=== PATIENT | female | born 1940 | race Caucasian/White ===

== ENCOUNTER 2017-07-19 10:52 | Day surgery (SDC) | payer MEDICARE ==
[2017-07-12 10:26] LABS: APPEARANCE,URINE SLIGHTLY-CLOUDY; BILIRUBIN,URINE NEGATIVE (NEGATIVE); GLUCOSE, URINE NEGATIVE (NEGATIVE); KETONES,URINE NEGATIVE (NEGATIVE); LEUKOCYTE ESTERASE,URINE NEGATIVE (NEGATIVE); NITRITE,URINE NEGATIVE (NEGATIVE); PROTEIN,URINE NEGATIVE (NEGATIVE); URINE SPECIFIC GRAVITY 1.013; UROBILINOGEN,URINE NEGATIVE mg/dL (<2.0)
--- NOTE | 2017-07-12 10:28 | RADIOLOGY REPORT (SQ) ---
EXAM DESCRIPTION: CHEST PA/LATERAL COMPLETED DATE/TIME: 07/12/2017 10:09 am REASON FOR STUDY: PRE-OP COMPARISON: 10/15/2013 EXAM PARAMETERS: NUMBER OF VIEWS: two views TECHNIQUE: Digital Frontal and Lateral radiographic views of the chest acquired. RADIATION DOSE: NA LIMITATIONS: none FINDINGS: LUNGS AND PLEURA: The lungs are hyperexpanded. There is some flattening the diaphragms. There is no pulmonary infiltrate or pleural effusion there is no mass MEDIASTINUM AND HILAR STRUCTURES: No masses or contour abnormalities. HEART AND VASCULAR STRUCTURES: Heart normal size. No evidence for failure. BONES: No acute findings. HARDWARE: None in the chest. OTHER: No other significant finding. IMPRESSION: Chronic lung changes with no acute cardiopulmonary disease. TECHNICAL DOCUMENTATION: JOB ID: [id number] [employer]- All Rights Reserved
[2017-07-12 10:29] LABS: ABSOLUTE BASOPHILS # (AUTO) 0.1 10^3/uL (0.0-0.2); ABSOLUTE EOSINOPHILS # (AUTO) 0.3 10^3/uL (0.0-0.6); ABSOLUTE MONOCYTES (AUTO) 0.6 10^3/uL (0.1-1.4); ABSOLUTE NEUT (AUTO) 4.1 10^3/uL (1.7-8.2); BASOPHILS % (AUTO) 1.3 % (0-2); EOSINOPHILS % (AUTO) 4.9 % (0-6); HEMATOCRIT 43.9 % (36.0-47.0); HEMOGLOBIN 15.1 g/dL (12.0-15.5); HGB HCT DIFFERENCE 1.4; LYMPHOCYTES % (AUTO) 27.7 % (13-45); MEAN CORPUSCULAR HEMOGLOBIN 30.3 pg (27.0-33.4); MEAN CORPUSCULAR HGB CONC 34.4 g/dL (32.0-36.0); MEAN CORPUSCULAR VOLUME 88 fl (80-97); MONOCYTES % (AUTO) 7.8 % (3-13); RED BLOOD COUNT 4.99 10^6/uL (3.72-5.28); RED CELL DISTRIBUTION WIDTH 14.1 % (11.5-14.0); SEGMENTED NEUTROPHILS % (AUTO) 58.3 % (42-78); WHITE BLOOD COUNT 7.1 10^3/uL (4.0-10.5)
--- NOTE | 2017-07-12 17:21 | EKG REPORT ---
SEVERITY:- ABNORMAL ECG - SINUS RHYTHM LAD, CONSIDER LEFT ANTERIOR FASCICULAR BLOCK PROBABLE ANTEROSEPTAL INFARCT, OLD : Confirmed by: Mumtaz Ramos 12-Jul-2017 17:21:13
[~2017-07-19 10:52] MED LIST: CEFAZOLIN 2 GM/D5W RTU 2 GM/50 ML RTUPB IV PRN; DEXAMETHASONE SOD PHOSPHATE INJ 4 MG/1 ML VIAL ONE; GLYCOPYRROLATE INJ 0.4 MG/2 ML VIAL ONE; LACTATED RINGERS 1000 ML IV PRN; LIDOCAINE 0.5% INJ-PF (5 MG/ML) 50 ML SDV SUBCUT PRN; LIDOCAINE 2% INJ-PF (20 MG/ML) 10 ML AMPUL ONE; NEOSTIGMINE METHYLSULFATE 10 MG/10 ML VIAL ONE; ONDANSETRON HCL INJ/PF 4 MG/2 ML SDV ONE; PHENYLEPHRINE HCL INJ/PF 10 MG/1 ML SDV ONE; SCOPOLAMINE HYDROBROMIDE 1.5 MG PATCH.TD72 TD PRN; SUCCINYLCHOLINE CHLORIDE INJ 200 MG/10 ML VIAL ONE
[2017-07-19] MEDS ORDERED: EPINEPHRINE INJ/PF 1 MG/1 ML AMPULE ONE (11:26)
[2017-07-19] MEDS ORDERED: BUPIVACAINE HCL 0.5 % INJ/PF 30 ML SDV ONE (11:26)
[2017-07-19] MEDS ORDERED: FENTANYL CITRATE INJ/PF 250 MCG/5 ML AMPULE ONE (12:48)
[2017-07-19] MEDS ORDERED: MIDAZOLAM 2 MG/2 ML INJ ONE (12:49)
[2017-07-19] MEDS ORDERED: PROPOFOL INJ 200 MG/20 ML VIAL IV ONE (12:49)
[2017-07-19] MEDS ORDERED: MORPHINE SULFATE 10 MG/ML INJ ONE (12:49)
[2017-07-19] MEDS ORDERED: MORPHINE SULFATE 10 MG/ML INJ IV PRN (14:15)
[2017-07-19] MEDS ORDERED: FENTANYL CITRATE INJ/PF 100 MCG/2 ML AMPUL IV PRN (14:15)
[2017-07-19] MEDS ORDERED: MEPERIDINE HCL/PF INJ 25 MG/1 ML DISP.SYRIN IV PRN (14:15)
[2017-07-19] MEDS ORDERED: DIPHENHYDRAMINE HCL 50 MG/ML VIAL IV PRN (14:15)
[2017-07-19] MEDS ORDERED: PROMETHAZINE HCL INJ 25 MG/1 ML VIAL IV PRN (14:15)
--- NOTE | 2017-07-19 15:47 | Operative Report ---
Operative Report DATE OF SURGERY: 07/19/17 PREOPERATIVE DIAGNOSIS: Right shoulder rotator cuff tear and degenerative biceps tendon tear POSTOPERATIVE DIAGNOSIS: Same OPERATION: Right shoulder arthroscopic rotator cuff repair and biceps tenodesis SURGEON: MARIA ESTHER CHAIREZ ANESTHESIA: GA TISSUE REMOVED OR ALTERED: None COMPLICATIONS: None ESTIMATED BLOOD LOSS: 20mL INTRAOPERATIVE FINDINGS: As above PROCEDURE: IMPLANTS: Arthrex 5.5 mm bio composite corkscrew 2, 4.75mm bio composite swivel locks 2 DESCRIPTION OF PROCEDURE: Patient was brought to the operating room placed in supine position. After successfully induced and intubated the patient patient was placed in the beachchair position the head and endotracheal tube was secured appropriately. The right shoulder was prepped and draped in a normal surgical fashion. A timeout was done identifying the right shoulder as the correct site. After inflating the glenohumeral joint with sterile saline solution an 11 blade was used to establish the posterior portal. The arthroscope was introduced and return of fluid was seen showing that we successfully penetrated the glenohumeral joint. With the use of spinal needle we're able to remy the anterior portal and using an 11 blade able to establish anterior portal. A cannula was introduced through the anterior portal. At this point diagnostic scope was done. Patient had degenerative tearing of the labrum and partial tearing of the long head of the biceps tendon. She had a full-thickness tear of the supra and infraspinatus tendon with mild retraction. Through the anterior portal was able to debride the tissue with a shaver and radiofrequency ablator. I used a arthroscopic scissors to tenotomized the long head of the biceps. Patient did have about a focal 5 x 5 mm grade 3 versus 4 chondromalacia. A lateral portal was established 11 blade. 4.0mm shaver was introduced and was used to prepare the tear and the frontal bone for preparation of anchor placement. Once I was satisfied with the preparation I then redirected my scope into the subacromial space. Patient had degenerative tissue and bursal tissue that was resected and the combination of a 4.0 mm shaver and radiofrequency ablator. I was able to use a rotator cuff grasper and make sure that the tendon was pliable and axilla enough to return back to the greater tuberosity. The infraspinatus came fully while the supraspinatus came two [address] along for a repair. Turned my attention then to try to do a rotator cuff repair. A percutaneous incision was then just adjacent to the acromion on the lateral aspect. Through this percutaneous hole the awl was used to prepare the hole for an anchor. Herrick was percutaneously sent flushed with the bone just adjacent to the articular margin.Same steps were taken for placement of our second anchor more posteriorly. Sutures were passed through the anterior portal for proper suture management. With the use of the scorpion and I proceeded to pass the sutures through the rotator cuff tendon with proper suture management was able to pass the strands either through percutaneous hole or the anterior portal. Once I was satisfied with placement of all my sutures I then proceeded to do my arthroscopic knots. At this point the strands were used to do our lateral row. Bicomposite show out was used and the lateral aspect of the humerus was then cleaned off with a shaver and electrocautery. Once identified once I was replacement I proceeded to use my awl to do my hole. This this point the sutures were adequately tensioned and subluxed for inserted and secured securing and increasing the footprint of the rotator cuff repair. Remaining strands were cut with the arthroscopic cutter. Also satisfied with the repair I used a FiberWire to catch in the tenotomized long head of biceps using the scorpion needle. At this point the 2 strands were passed of the anterior portion of the repaired cuff. Arthroscopic knot ties were done to secure the biceps to anterior rotator cuff tear. Arthroscopic cutter was used to cut the remaining wounds after securing the biceps. Final pictures were taking showing my repair and arthroscopic biceps tenodesis. At this point fluid from the shoulder was removed camera and instruments were all removed. I proceeded to close my portal sites with 3-0 nylon. Xeroform 4 x 4 dressing followed by ABDs pads and Medipore tape was applied. Patient was placed in a sling and returned to supine position where he was successfully extubated and taken to PACU in stable condition.
--- NOTE | 2017-07-19 15:51 | PDOC DISCHARGE SUMMARY ---
Discharge Summary (SDC) - Discharge Final Diagnosis: Right shoulder arthroscopic rotator cuff repair and biceps tenodesis Date of Surgery: 07/19/17 Discharge Date: 07/19/17 Condition: Good Treatment or Instructions: Patient is instructed to follow up in 10-14 days. Patient instructed to remove dressing in 4 days then can shower and apply Band- Aids as needed. Patient to wear sling for comfort but okay to remove for shower and pendulum exercises. Pendulum exercises are instructed to be done 3 times a day ideally with breakfast, lunch, dinners and showers. Patient instructed to call if there is any signs of redness or drainage fevers or chills. Prescriptions: Oxycodone HCl/Acetaminophen [Percocet 5-325 mg Tablet] 1 - 2 tab PO ASDIR PRN # 60 tablet PRN Reason: Referrals: BEATRICE TAPIA MD [Primary Care Provider] - Discharge Diet: As Tolerated Discharge Activity: Activity As Tolerated, No Driving, No Lifting/Push/Pulling Home Care Assistance: None Needed Report the Following to Your Physician Immediately: Shortness of Breath, Increase in Pain, Fever over 101 Degrees, Unusual Bleeding, Redness, Swelling, Warmth, Drainage-Yellow, Drainage-Morin, Drainage-Green, Drainage-Foul Smelling
[2017-07-19] MEDS ORDERED: OXYCODONE-ACETAMINOPHEN 5-325 MG TABLET PO PRN ×2 (15:58)
[2017-07-19] MEDS ORDERED: FENTANYL CITRATE INJ/PF 100 MCG/2 ML AMPUL ONE (16:18)
[2017-07-19 19:12] VITALS: BP 140/80
== END 2017-07-19 19:07 | disposition home or self-care (01) ==
LOC: OROUT 10:52
PROVIDERS: ATTEND Orthopaedic Surgery
PROC: 0LS14ZZ Reposition Right Shoulder Tendon, Percutaneous Endoscopic Approach (ICD-10-PCS; 2017-07-19)
PROC: 0LM14ZZ Reattachment of Right Shoulder Tendon, Percutaneous Endoscopic Approach (ICD-10-PCS; principal; 2017-07-19 13:00)
DX: M75.121 Complete rotator cuff tear or rupture of right shoulder, not specified as traumatic (principal); S43.431A Superior glenoid labrum lesion of right shoulder, initial encounter; X58.XXXA Exposure to other specified factors, initial encounter; J45.909 Unspecified asthma, uncomplicated; I10 Essential (primary) hypertension; Z88.2 Allergy status to sulfonamides; Z79.899 Other long term (current) drug therapy; Z79.51 Long term (current) use of inhaled steroids; Z87.891 Personal history of nicotine dependence
CPT/HCPCS: 93005; 36415 ×2; 84132; 85025; 81001; 71020; 93010; 29827; 29828; C1713; J2250; J1100; J0171; J3010 ×2; A9270; J2370; J0330; J2405; J2704; J3490; J0690; 1630; J2270

== ENCOUNTER 2018-07-05 16:15 | Emergency (ER) | payer MEDICARE ==
--- NOTE | 2018-07-05 17:09 | RADIOLOGY REPORT (SQ) ---
EXAM DESCRIPTION: CT HEAD WITHOUT COMPLETED DATE/TIME: 07/05/2018 4:57 pm REASON FOR STUDY: fall COMPARISON: None. TECHNIQUE: Axial images acquired through the brain without intravenous contrast. Images reviewed wi th bone, brain and subdural windows. Additional sagittal and coronal reconstructions were generated. Images stored on PACS. All CT scanners at this facility use dose modulation, iterative reconstruction, and/or weight based d osing when appropriate to reduce radiation dose to as low as reasonably achievable (ALARA). [facility]: Dose Right [facility]: CareDose [facility]: Dose Right [facility]: Teradose 4D [facility]: Ellevation RADIATION DOSE: CT Rad equipment meets quality standard of care and radiation dose reduction techniq ues were employed. CTDIvol: 53.2 mGy. DLP: 1070 mGy-cm. mGy. LIMITATIONS: None. FINDINGS: VENTRICLES: Prominent. CEREBRUM: No masses. No hemorrhage. No midline shift. Areas of low density in the white matter mos t likely due to chronic micro-vascular ischemic change. No evidence for acute infarction. CEREBELLUM: No masses. No hemorrhage. No alteration of density. No evidence for acute infarction. EXTRAAXIAL SPACES: Mild age-related involutional change. No fluid collections. No masses. ORBITS AND GLOBE: No intra- or extraconal masses. Normal contour of globe without masses. CALVARIUM: No fracture. PARANASAL SINUSES: No fluid or mucosal thickening. SOFT TISSUES: Right frontal scalp hematoma. OTHER: No other significant finding. IMPRESSION: MILD CHRONIC CHANGES OF ATROPHY AND MICROVASCULAR ISCHEMIA. NO ACUTE PROCESS. EVIDENCE OF ACUTE STROKE: NO. TECHNICAL DOCUMENTATION: JOB ID: [id number] Quality ID # [id number]: Final reports with documentation of one or more dose reduction techniques (e.g., Au tomated exposure control, adjustment of the mA and/or kV according to patient size, use of iterative reconstruction technique) 2010 [employer]- All Rights Reserved Reading location - IP/workstation name: [email or web address]
[2018-07-05] MEDS ORDERED: LIDOCAINE 4%/TETRACAINE 0.5%/EPI 0.18% 5 ML TOPICAL SOLN TOP ONE (17:21)
[2018-07-05] MEDS ORDERED: LIDOCAINE 1%/EPINEPHRINE INJ 20 ML VIAL INJ ONE (17:21)
--- NOTE | 2018-07-05 18:54 | ER Document Report ---
ED General - General Chief Complaint: Laceration Stated Complaint: FALL/HEAD INJURY Time Seen by Provider: 07/05/18 16:50 Mode of Arrival: Ambulatory Information source: Patient Notes: This is a 77-year-old female with a history of COPD, hypertension, hypothyroidism. Patient presents after a fall and hitting her head. She was coming out of the house, and lost her footing and fell onto the concrete of the driveway. The patient was with her daughter at the time who witnessed the event. There was no loss of consciousness and she was able to ambulate after. The patient presents with swelling to the right forehead with a laceration over the right eyebrow and an abrasion to the left knee TRAVEL OUTSIDE OF THE [place] IN LAST 30 DAYS: No - HPI Onset/Duration: Sudden Quality of pain: Dull Severity: Mild Pain Level: 1 Associated symptoms: denies: Chest pain, Headache, Shortness of breath Exacerbated by: Denies Relieved by: Denies Similar symptoms previously: No Recently seen / treated by doctor: No - Related Data Allergies/Adverse Reactions: Sulfa (Sulfonamide Antibiotics) Allergy (Verified 07/05/18 16:20) UNKNOWN Past Medical History - General Information source: Patient - Social History Smoking Status: Never Smoker Cigarette use (# per day): No Chew tobacco use (# tins/day): No Frequency of alcohol use: None Drug Abuse: None Lives with: Family Family History: None Patient has suicidal ideation: No Patient has homicidal ideation: No - Past Medical History Cardiac Medical History: Reports: Hx Hypertension - AMLODIPINE, ATENOLOL Denies: Hx Coronary Artery Disease, Hx Heart Attack Pulmonary Medical History: Reports: Hx COPD Denies: Hx Asthma, Hx Bronchitis, Hx Pneumonia Neurological Medical History: Denies: Hx Cerebrovascular Accident, Hx Seizures Renal/ Medical History: Denies: Hx Peritoneal Dialysis GI Medical History: Denies: Hx Hepatitis, Hx Hiatal Hernia, Hx Ulcer Musculoskeletal Medical History: Reports Hx Arthritis Infectious Medical History: Denies: Hx Hepatitis Past Surgical History: Reports: Hx Appendectomy, Hx Cholecystectomy, Hx Hysterectomy, Hx Orthopedic Surgery - rotator cuff R. Denies: Hx Mastectomy, Hx Open Heart Surgery, Hx Pacemaker - Immunizations Hx Diphtheria, Pertussis, Tetanus Vaccination: Yes Hx Pneumococcal Vaccination: 10/28/16 Review of Systems - Review of Systems Constitutional: denies: Chills, Fever EENT: No symptoms reported Cardiovascular: No symptoms reported Respiratory: No symptoms reported Gastrointestinal: No symptoms reported Genitourinary: No symptoms reported Female Genitourinary: No symptoms reported Musculoskeletal: See HPI Skin: See HPI Hematologic/Lymphatic: No symptoms reported Neurological/Psychological: See HPI Physical Exam - Vital signs Vitals: Temp Pulse Resp BP Pulse Ox 98.1 F 65 16 134/68 H 94 07/05/18 16:35 07/05/18 16:35 07/05/18 16:35 07/05/18 16:35 07/05/18 16:35 Notes: Physical exam: GENERAL: 77-year-old female, alert and oriented 3, no acute distress. HEAD: She does have a large hematoma to the right forehead. She does have 5 cm laceration over the right eyebrow. EYES: Pupils equal round and reactive to light, extraocular movements intact, sclera anicteric, conjunctiva are normal. ENT: Oropharynx clear without exudates. Moist mucous membranes. NECK: Normal range of motion, supple without obvious mass. LUNGS: Breath sounds clear to auscultation bilaterally and equal. No wheezes rales or rhonchi. HEART: Regular rate and rhythm without murmurs, rubs or gallops. ABDOMEN: Soft, normoactive bowel sounds. No tenderness to palpation. No guarding, no rebound. No masses appreciated. EXTREMITIES: Normal range of motion, no pitting or edema. Patient does have a superficial abrasion over the left knee. She has full range of motion of the left knee. NEUROLOGICAL: Cranial nerves II through XII grossly intact. Normal speech, moving all extremities, motor is 5/5, sensory is grossly intact, cerebellar ( finger to nose) is excellent. Patient's visual bashir is very good. He is mentating appropriately. Her GCS is 15. PSYCH: Normal mood, normal affect. SKIN: Warm, Dry, normal turgor, no rashes or lesions noted. Course - Vital Signs Vital signs: Temp Pulse Resp BP Pulse Ox 97.3 F 61 16 134/69 H 94 07/05/18 18:59 07/05/18 18:59 07/05/18 18:59 07/05/18 18:59 07/05/18 18:59 - Diagnostic Test Radiology reviewed: Image reviewed, Reports reviewed - CT of the head shows no acute bleed Procedures - Laceration/Wound Repair Face Time completed: 19:00 Wound length (cm): 5 Wound's Depth, Shape: Irregular Anesthetic type: 1% Lidocaine w/epi Volume Anesthetic (mLs): 4 Wound explored: Clean Irrigated w/ Saline (mLs): 250 Wound Debrided: Minimal Wound Repaired With: Sutures Suture Size/Type: 6:0 Number of Sutures: 9 Layer Closure?: No Post-procedure wound care: Other - Steri-Strips applied Post-procedure NV exam normal: Yes Complications: No Discharge - Discharge Clinical Impression: Face laceration status post fall, Concussion Condition: Stable Disposition: HOME, SELF-CARE Instructions: Antibiotic Ointment Protection (OM), Concussion (OM), Laceration Care ([facility]) Additional Instructions: He received 9 sutures and this was covered with Steri-Strips. Keep the wound dry. Return in 7 days for suture removal The night before suture removal, light bacitracin over the Steri-Strips (this will loosen up the Steri-Strips making them easier to remove.). Can apply bacitracin over the abrasions to the left knee. Return to the emergency room for any confusion, excessive vomiting, mental status changes or any concerns that she do not feel right. Prescriptions: Bacitracin Zinc [Bacitracin Oint 15 gm] 1 applic TP DAILY #1 tube Forms: Follow up (Sutures/Coleman) Referrals: SUDEEP FRASER DPM [Primary Care Provider] - Follow up as needed
[2018-07-05 19:01] VITALS: BP 134/69
[2018-07-05] MEDS ORDERED: DIPH/PERTUSS(ACELL)/TETANUS VAC/PF 0.5 ML SYR (>=10YO) IM ONE (19:02)
== END 2018-07-05 19:17 | disposition home or self-care (01) ==
LOC: ER 16:15
DX: S06.0X0A Concussion without loss of consciousness, initial encounter (principal); S01.111A Laceration without foreign body of right eyelid and periocular area, initial encounter; S80.212A Abrasion, left knee, initial encounter; W10.9XXA Fall (on) (from) unspecified stairs and steps, initial encounter; Y92.008 Other place in unspecified non-institutional (private) residence as the place of occurrence of the external cause; J44.9 Chronic obstructive pulmonary disease, unspecified; I10 Essential (primary) hypertension; Z88.2 Allergy status to sulfonamides
CPT/HCPCS: 99284; 90471; 70450; 90715; 12013; J3490

== ENCOUNTER → 2018-10-03 | Outpatient (CLI) | payer MEDICARE ==
--- NOTE | 2018-10-03 15:21 | WOMENS IMAGING REPORT ---
EXAM DESCRIPTION: 3D SCREENING MAMMO BILAT COMPLETED DATE/TIME: 10/03/2018 1:54 pm REASON FOR STUDY: SCREENING MAMMO Z12.31 ENCNTR SCREEN MAMMOGRAM FOR MALIGNANT NEOPLASM OF XOCHILT COMPARISON: Multiple since 2008 TECHNIQUE: Standard craniocaudal and mediolateral oblique views of each breast recorded using digita l acquisition and breast tomosynthesis. LIMITATIONS: None. FINDINGS: No masses, calcifications or architectural distortion. No areas of suspicion. Read with the assistance of CAD. .[facility] - R2 Cenova Version 1.3 .[facility] - R2 Cenova Version 1.3 .[facility] - R2 Cenova Version 2.4 .[facility] - R2 Cenova Version 2.4 .[facility] - R2 Risk Management Consultant Version 9.2 IMPRESSION: NORMAL MAMMOGRAM. BIRADS 1. BREAST DENSITY: c. The breasts are heterogeneously dense, which may obscure small masses. BIRAD: 1 NEGATIVE RECOMMENDATION: ROUTINE SCREENING Please continue yearly bilateral screening mammography/tomosynthesis in September 2019 COMMENT: The patient has been notified of the results by letter per [place] requirements. Additional no tification policies are in place for contacting patient with suspicious or incomplete findings. Quality ID #225: The [employer] recommends an annual screening mammogram for women aged 40 years or over. This facility utilizes a reminder system to ensure that all patients receive reminder letters, and/or direct phone calls for appointments. This includes reminders for routine scr eening mammograms, diagnostic mammograms, or other Breast Imaging Interventions when appropriate. Th is patient will be placed in the appropriate reminder system. The [employer] (ACR) has developed recommendations for screening MRI of the breast s in certain patient populations, to be used in conjunction with mammography. Breast MRI surveillanc e may be appropriate for women with more than 20% lifetime risk of developing breast cancer as deter mined by genetic testing, significant family history of the disease, or history of mantle radiation f or Hodgkins Disease. ACR Practice Guidelines 2008. DBT Technology DBT is a type of tomographic mammography. With conventional mammography, overlapping breast tissue ma y make lesions difficult to detect, even with good compression. DBT uses an x-ray tube that rotates a round the breast, taking images at different angles. These images are then combined to create thin sl ices of the breast that the radiologist can view as a 3D reconstruction. The Brickflow unit can perform full-field digital mammograms (2D imaging); or DBT (3D imaging); or both, in a combination mode that quickly performs both the mammogram and the tomosynthesis scan while the breast is still compressed. PQRS 6045F: Fluoroscopic imaging is not utilized for breast tomosynthesis. TECHNICAL DOCUMENTATION: FINDING NUMBER: (1) ASSESSMENT: (1) JOB ID: [id number] [employer]- All Rights Reserved Reading location - IP/workstation name: [facility]
== END ==
LOC: WI 13:10
PROVIDERS: ATTEND Internal Medicine
DX: Z12.31 Encounter for screening mammogram for malignant neoplasm of breast (principal)
CPT/HCPCS: 77063; 77067

== ENCOUNTER 2019-03-10 07:23 | Day surgery (SDC) | payer MEDICARE ==
[~2019-03-10 07:23] MED LIST changes: -CEFAZOLIN 2 GM/D5W RTU 2 GM/50 ML RTUPB IV PRN; -DEXAMETHASONE SOD PHOSPHATE INJ 4 MG/1 ML VIAL ONE; -GLYCOPYRROLATE INJ 0.4 MG/2 ML VIAL ONE; +KETOROLAC TROMETHAMINE 0.45% 4 DROP/0.4 ML DROPERETTE OS PRN; -LACTATED RINGERS 1000 ML IV PRN; -LIDOCAINE 0.5% INJ-PF (5 MG/ML) 50 ML SDV SUBCUT PRN; -LIDOCAINE 2% INJ-PF (20 MG/ML) 10 ML AMPUL ONE; -NEOSTIGMINE METHYLSULFATE 10 MG/10 ML VIAL ONE; -ONDANSETRON HCL INJ/PF 4 MG/2 ML SDV ONE; -PHENYLEPHRINE HCL INJ/PF 10 MG/1 ML SDV ONE; -SCOPOLAMINE HYDROBROMIDE 1.5 MG PATCH.TD72 TD PRN; -SUCCINYLCHOLINE CHLORIDE INJ 200 MG/10 ML VIAL ONE
[2019-03-10] MEDS ORDERED: MIDAZOLAM 2 MG/2 ML INJ ONE (07:28)
[2019-03-10] MEDS: TETRACAINE HCL 0.5% OPH SOLN 0.6 ML DROPERETTE OS PRN ×4 (08:10→08:52)
[2019-03-10] MEDS: BESIFLOXACIN HCL 0.6% OPH SUSP 5 ML BOTTLE OS PRN ×4 (08:11→09:19)
[2019-03-10] MEDS: CYCLOPENTOLATE 0.2%/PHENYLEPHRINE 1% OPH SOLN 2 ML OS PRN ×3 (08:11→08:35)
[2019-03-10] MEDS: TROPICAMIDE 1% OPH SOLN 3 ML OS PRN ×3 (08:11→08:35)
[2019-03-10] MEDS: BUPIVACAINE HCL 0.75% INJ/PF (7.5 MG/1 ML) 10 ML SDV OS PRN ×2 (08:55)
[2019-03-10] MEDS: LIDOCAINE 4% INJ/PF (40 MG/ML) 5 ML AMPUL OS PRN ×2 (08:55)
[2019-03-10] MEDS: LIDOCAINE 1% INJ-PF (10 MG/ML) 30 ML SDV ONE ×2 (09:07)
[2019-03-10] MEDS: EPINEPHRINE INJ/PF 1 MG/1 ML AMPULE ONE ×2 (09:07)
[2019-03-10] MEDS: CHONDR SU A NA/HYALUR INTRAOC KIT (SURGICARE) ONE ×2 (09:07)
[2019-03-10] MEDS: DORZOLAMIDE HCL 2%/TIMOLOL MALEAT 0.5% OPH SOLN 10 ML OS PRN ×2 (09:19)
--- NOTE | 2019-03-10 15:04 | [facility] OPERATIVE REPORT E ---
[facility] Operative Report NAME: AUSTIN SAMUEL AGE: 78Y DATE OF SURGERY: 03/10/2019 ROOM: PREOPERATIVE DIAGNOSIS: CATARACT, LEFT EYE; ASTIGMATISM LEFT EYE. POSTOPERATIVE DIAGNOSIS: CATARACT, LEFT EYE; ASTIGMATISM LEFT EYE. PROCEDURE PERFORMED: PHACOEMULSIFICATION WITH TORIC INTRAOCULAR LENS IMPLANT, LEFT EYE. SURGEON: JAY LUZ MD ANESTHESIA: TOPICAL WITH MAC. INDICATIONS FOR SURGERY: Difficulty reading road signs. PROCEDURE: The patient was brought to the Operating Room and placed on the operative table. Prior to the surgery the patient was placed in the seating position and the 0-270 and 180 degree axis of the eye was marked using a marking level. Following tetracaine drops, topical anesthesia was administered. This consisted of instrument wipe pledgets soaked in a solution of 4% Xylocaine mixed with 0.75% Marcaine in a 1:2 ratio. A 2 x 1 cm pledget was placed in the superior fornix. A 1 x 1 cm pledget was placed in the inferior fornix. The eye was patched shut for 5 minutes. The patch was removed. The eye was sterilely prepped and draped in the usual manner. Lid speculum was placed in the eye. The pledgets were removed. 4-0 black silk sutures were placed around the superior and the inferior rectus muscles to be used as traction. A conjunctival peritomy was made at the 10 o'clock position. Hemostasis was obtained with bipolar cautery. A posterior limbal groove was created using a crescent knife and dissected anteriorly towards the cornea. A sharp point blade was used to create a paracentesis site at the 2 o'clock position. A 2.4 mm keratome was used to enter the anterior chamber through the groove. Viscoelastic was injected into the anterior chamber. An anterior capsulotomy was performed using Utrata forceps in a capsulorrhexis fashion. Hydrodissection and hydrodelineation were performed. Phacoemulsification was performed in aotiqz-iue-vojuopg technique. A total of 5.14 CDE phaco time was used. Prior to placing the lens implant the 177 degree axis was marked on the eye and the lens was centered at this axis. Following this, the I/A unit was used to remove residual cortex. Viscoelastic was injected into the capsular bag. Intraocular lens model [id number], 17.0 diopters, serial number [id number] was placed in the capsular bag. The I/A unit was used to remove residual viscoelastic. The wound was seen to be watertight under high and low pressure, and no sutures were placed. The intraocular lens was well centered. The pressure was adjusted in the eye to normal pressure. The 4-0 black silk sutures and lid speculum were removed. The eye was shielded after Besivance drops were placed. The patient tolerated the procedure well and was sent to the Recovery Room in good condition. A drop of Cosopt was placed in the eye at the end of surgery. DICTATING PHYSICIAN: JAY LUZ M.D. DICTATING PHYSICIAN: JAY LUZ M.D. [id number] Y#: [id number] ID: [id number] JOB#: [id number] ACCT: [id number] cc:JAY LUZ M.D. >
--- NOTE | 2019-03-10 15:06 | [facility] DISCHARGE SUMMARY E ---
[facility] Discharge Summary NAME: AUSTIN SAMUEL AGE: 78Y ADMITTED: 03/10/2019 DISCHARGED: 03/10/2019 FINAL DIAGNOSIS: CATARACT, LEFT EYE HOSPITAL COURSE: The patient is a 78-year-old lady who underwent uneventful cataract extraction with Toric intraocular lens implant, left eye on 03/10/19. She will be discharged to home. She is instructed to resume preoperative medications, take Tylenol as needed for discomfort, to keep her eye shielded, to use Besivance, Durezol and Ilevro at 3 p.m. and 8 p.m., and to follow up in my office in 1 day. DICTATING PHYSICIAN: JAY LUZ M.D. [id number] PHY#: [id number] ID: [id number] JOB#: [id number] ACCT: [id number] cc:JAY LUZ M.D. >
== END 2019-03-10 10:00 | disposition home or self-care (01) ==
LOC: SC 07:23
PROVIDERS: ATTEND Ophthalmology
DX: H25.812 Combined forms of age-related cataract, left eye (principal); Z96.1 Presence of intraocular lens; H59.81 Chorioretinal scars after surgery for detachment; H43.813 Vitreous degeneration, bilateral; I10 Essential (primary) hypertension; E78.00 Pure hypercholesterolemia, unspecified; E03.9 Hypothyroidism, unspecified; J44.9 Chronic obstructive pulmonary disease, unspecified; Z87.891 Personal history of nicotine dependence; Z88.2 Allergy status to sulfonamides; Z79.899 Other long term (current) drug therapy; Z79.82 Long term (current) use of aspirin; Z79.51 Long term (current) use of inhaled steroids
CPT/HCPCS: 66984; V2787; J2250; J3490 ×4; A9270; J0171; 142

== ENCOUNTER → 2019-10-05 | Outpatient (CLI) | payer MEDICARE ==
--- NOTE | 2019-10-05 14:59 | WOMENS IMAGING REPORT ---
EXAM DESCRIPTION: 3D SCREENING MAMMO BILAT COMPLETED DATE/TIME: 10/05/2019 2:18 pm REASON FOR STUDY: Z12.31 SCREENING MAMMO Z12.31 ENCNTR SCREEN MAMMOGRAM FOR MALIGNANT NEOPLASM OF B RE COMPARISON: [id number] EXAM PARAMETERS: Views: Standard craniocaudal and mediolateral oblique views of each breast recorded using digital acquisition and breast tomosynthesis. Read with the assistance of CAD. .[facility] - R2 Policy Adviser Version 9.2 LIMITATIONS: None. FINDINGS: No suspicious masses, suspicious calcifications or architectural distortion. No areas of c oncern. IMPRESSION: NEGATIVE MAMMOGRAM. BIRADS 1. BREAST DENSITY: b. There are scattered areas of fibroglandular density. BIRAD: ASSESSMENT: 1 NEGATIVE RECOMMENDATION: ROUTINE SCREENING COMMENT: The patient has been notified of the results by letter per MQSA requirements. Additional no tification policies are in place for contacting patient with suspicious or incomplete findings. Quality ID #225: The [employer] recommends an annual screening mammogram for women aged 40 years or over. This facility utilizes a reminder system to ensure that all patients receive reminder letters, and/or direct phone calls for appointments. This includes reminders for routine scr eening mammograms, diagnostic mammograms, or other Breast Imaging Interventions when appropriate. Th is patient will be placed in the appropriate reminder system. TECHNICAL DOCUMENTATION: FINDING NUMBER: (1) ASSESSMENT: (1) JOB ID: [id number] [employer]- All Rights Reserved Reading location - IP/workstation name: [email or web address]
== END ==
LOC: WI 13:10
PROVIDERS: ATTEND Physician Assistant
DX: Z12.31 Encounter for screening mammogram for malignant neoplasm of breast (principal); Z78.0 Asymptomatic menopausal state
CPT/HCPCS: 77063; 77067

== ENCOUNTER → 2019-10-08 | Outpatient (CLI) | payer MEDICARE ==
--- NOTE | 2019-10-08 13:40 | WOMENS IMAGING REPORT ---
EXAM DESCRIPTION: BONE DENSITY HIP/SPINE COMPLETED DATE/TIME: 10/08/2019 1:09 pm REASON FOR STUDY: Z78.0 BONE DENSITY Z78.0 ASYMPTOMATIC MENOPAUSAL STATE COMPARISON: None. TECHNIQUE: Dual-Energy X-ray Absorptiometry (DEXA) of the AP Spine and Hip. LIMITATIONS: None. FINDINGS: LUMBAR SPINE: The bone mineral density (BMD) measured from L1-L4 in the AP projection correlates with a T-score of 2.9, which is normal as defined by the World Health Organization. HIP: The bone mineral density (BMD) measured in the left hip correlates with a T-score of -0.6, which is n ormal as defined by the World Health Organization. IMPRESSION: 1. LUMBAR SPINE: NORMAL. 2. HIP: NORMAL. COMMENT: The World Health Organization defines low BMD as follows: T-score: Normal: Greater than -1.0 Osteopenia: Between -1.0 and -2.5 Osteoporosis: Less than -2.5 without fractures Established osteoporosis: Less than -2.5 with fractures In general, you may wish to consider: Diagnosis Treatment Follow-up DEXA Normal BMD Prevention 2-3 years Osteopenia Prevention/Therapy 1-2 years Osteoporosis Therapy Yearly TECHNICAL DOCUMENTATION: JOB ID: [id number] [employer]- All Rights Reserved Reading location - IP/workstation name: [email or web address]
== END ==
LOC: WI 12:45
PROVIDERS: ATTEND Internal Medicine
DX: Z78.0 Asymptomatic menopausal state (principal)
CPT/HCPCS: 77080

== ENCOUNTER → 2020-10-06 | Outpatient (CLI) | payer MEDICARE ==
--- NOTE | 2020-10-06 15:10 | WOMENS IMAGING REPORT ---
EXAM DESCRIPTION: 3D SCREENING MAMMO BILAT IMAGES COMPLETED DATE/TIME: 10/06/2020 1:56 pm REASON FOR STUDY: Z12.31 ENCNTR SCREEN MAMMOGRAM FOR MALIGNANT NEOPLASM OF BREAST Z12.31 ENCNTR SCR EEN MAMMOGRAM FOR MALIGNANT NEOPLASM OF XOCHILT COMPARISON: Priors dating back to 2010 EXAM PARAMETERS: Views: Standard craniocaudal and mediolateral oblique views of each breast recorded using digital acquisition and breast tomosynthesis. Read with the assistance of CAD. .[facility] - Health Program Manager Version 9.2 LIMITATIONS: None. FINDINGS: No suspicious masses, suspicious calcifications or architectural distortion. No areas of c oncern. IMPRESSION: NEGATIVE MAMMOGRAM. BIRADS 1. BREAST DENSITY: b. There are scattered areas of fibroglandular density. BIRAD: ASSESSMENT: 1 NEGATIVE RECOMMENDATION: ROUTINE SCREENING COMMENT: The patient has been notified of the results by letter per MQSA requirements. Additional no tification policies are in place for contacting patient with suspicious or incomplete findings. Quality ID #[id number]: [employer] [place] [employer] recommends an annual screening mammogram for women aged 40 years or over. This facility utilizes a reminder system to ensure that all patients receive reminder letters, and/or direct phone calls for appointments. This includes reminders for routine scr eening mammograms, diagnostic mammograms, or other Breast Imaging Interventions when appropriate. Th is patient will be placed in the appropriate reminder system. TECHNICAL DOCUMENTATION: FINDING NUMBER: (1) ASSESSMENT: (1) JOB ID: [id number] 2010 [employer]- All Rights Reserved Reading location - IP/workstation name: [facility]
== END ==
LOC: WI 13:38
PROVIDERS: ATTEND Physician Assistant
DX: Z12.31 Encounter for screening mammogram for malignant neoplasm of breast (principal)
CPT/HCPCS: 77063; 77067